=== PATIENT | male | born 1970 | race Hispanic/Latino ===

== ENCOUNTER 2019-08-09 07:44 | Emergency (ER) | payer OTHER ==
[2019-08-09 08:25] LABS: Basophils # (Auto) 0.1 K/mm3 (0.0-0.1); Basophils % (Auto) 0.5 % (0.0-1.8); Eosinophils % (Auto) 0.2 % (0.0-4.3); Hematocrit 45.6 % (35.5-45.6); Hemoglobin 16.2 gm/dl (11.8-15.2); Lymphocytes # (Auto) 1.7 K/mm3 (1.2-5.4); Lymphocytes % (Auto) 15.4 % (13.4-35.0); Mean Corpuscular HGB Conc 35 % (32-34); Mean Corpuscular Volume 94 fl (84-94); Monocytes # (Auto) 0.9 K/mm3 (0.0-0.8); Monocytes % (Auto) 7.9 % (0.0-7.3); Platelet Count 209 K/mm3 (140-440); Red Blood Count 4.83 M/mm3 (3.65-5.03); Red Cell Distribution Width 12.2 % (13.2-15.2)
[2019-08-09 08:35] LABS: BUN/Creatinine Ratio 27; Blood Urea Nitrogen 19 mg/dL (9-20); Hemolysis Index 10
[2019-08-09] MEDS ORDERED: LORazepam 1 MG TAB PO ONE (08:43)
--- NOTE | 2019-08-09 08:49 | Emergency Department Report ---
HPI - General Chief Complaint: Extremity Problem,Nontraumatic Time Seen by Provider: 08/09/19 08:17 - HPI HPI: [facility] The patient is a 48-year-old male presenting with a chief complaint of panic and paranoia. The patient is a poor historian but states that he was a limited detox center approximate 4 days ago. Patient states he left because he began to panic and felt paranoid as though the treatment team was trying to set him up "again." The patient is a poor historian and pauses approximately 15 seconds in between words whenever he is asked a question. Patient denies suicidal or homicidal ideation. Patient denies visual or auditory hallucinations Location: [See above] Duration: [See above] Quality: [See above] Severity: [See above] Timing: [See above] Context: [See above] Modifying factors: [See above] Associated signs and symptoms: [see above] ED Past Medical Hx - Past Medical History Previous Medical History?: Yes Hx of Cancer: Yes (Brain) Hx Psychiatric Treatment: Yes (alcoholism) Additional medical history: Hip pain, Bodyaches, Brain Cancer - Surgical History Past Surgical History?: Yes Additional Surgical History: Brain, Left arm - Family History Family history: no significant - Social History Smoking Status: Never Smoker Substance Use Type: None (denies illicit drug use), Alcohol (5-15 beers/vodka daily. None 5 days) ED Review of Systems ROS: Stated complaint: HIP PAIN Other details as noted in HPI Constitutional: no symptoms reported Respiratory: no symptoms reported Endocrine: no symptoms reported Gastrointestinal: denies: abdominal pain Physical Exam - Physical Exam Vital Signs: Vital Signs 08/09/19 07:51 Temperature 98.1 F Pulse Rate 104 H Respiratory 18 Rate Blood Pressure 126/94 O2 Sat by Pulse 97 Oximetry Physical Exam: GENERAL: The patient is well-developed well-nourished male sitting in chair not appear to be in acute distress. [] HEENT: Normocephalic. Atraumatic. Extraocular motions are intact. Patient has moist mucous membranes. NECK: Supple. Trachea midline CHEST/LUNGS: Clear to auscultation. There is no respiratory distress noted. HEART/CARDIOVASCULAR: Regular. There is tachycardia. There is no gallop rub or murmur. ABDOMEN: Abdomen is soft, nontender. Patient has normal bowel sounds. There is no abdominal distention. SKIN: There is no rash. There is no edema. There is no diaphoresis. NEURO: The patient is awake, alert, and oriented to self and year. Patient is aware that he is in a hospital but was unable to name it. The patient is cooperative. The patient has no focal neurologic deficits. The patient has normal speech and gait. MUSCULOSKELETAL: There is no evidence of acute injury. ED Course Vital Signs 08/09/19 07:51 Temperature 98.1 F Pulse Rate 104 H Respiratory 18 Rate Blood Pressure 126/94 O2 Sat by Pulse 97 Oximetry ED Medical Decision Making - Lab Data Result diagrams: 08/09/19 08:05 08/09/19 08:05 Laboratory Tests 08/09/19 08/09/19 08/09/19 08:05 08:05 08:05 WBC RBC Hgb Hct MCV MCH MCHC RDW Plt Count Lymph % (Auto) [place] % (Auto) Eos % (Auto) Baso % (Auto) Lymph # [place] # Eos # Baso # Seg Neutrophils % Seg Neutrophils # Sodium 139 Potassium 4.3 Chloride 96.4 L Carbon Dioxide 27 Anion Gap 20 BUN 19 Creatinine 0.7 L Estimated GFR > 60 BUN/Creatinine Ratio 27 Glucose 127 H Calcium 10.0 Urine Color Urine Turbidity Urine pH Ur Specific [place] Urine Protein Urine Glucose (UA) Urine Ketones Urine Blood Urine Nitrite Urine Bilirubin Urine Urobilinogen Ur Leukocyte Esterase Urine WBC (Auto) Urine RBC (Auto) U Epithel Cells (Auto) Urine Mucus Urine Opiates Screen Urine Methadone Screen Acetaminophen < 5.0 L Ur Barbiturates Screen Ur Phencyclidine Scrn Ur Amphetamines Screen U Benzodiazepines Scrn Urine Cocaine Screen U Marijuana (THC) Screen Drugs of Abuse Note Plasma/Serum Alcohol < 0.01 08/09/19 08/09/19 08/09/19 08:05 08:46 08:46 WBC 11.2 H RBC 4.83 Hgb 16.2 H Hct 45.6 MCV 94 MCH 34 H MCHC 35 H RDW 12.2 L Plt Count 209 Lymph % (Auto) 15.4 [place] % (Auto) 7.9 H Eos % (Auto) 0.2 Baso % (Auto) 0.5 Lymph # 1.7 [place] # 0.9 H Eos # 0.0 Baso # 0.1 Seg Neutrophils % 76.0 H Seg Neutrophils # 8.6 H Sodium Potassium Chloride Carbon Dioxide Anion Gap BUN Creatinine Estimated GFR BUN/Creatinine Ratio Glucose Calcium Urine Color Yellow Urine Turbidity Clear Urine pH 5.0 Ur Specific [place] 1.025 Urine Protein <15 mg/dl Urine Glucose (UA) Neg Urine Ketones Tr Urine Blood Sm Urine Nitrite Neg Urine Bilirubin Neg Urine Urobilinogen 4.0 Ur Leukocyte Esterase Neg Urine WBC (Auto) 1.0 Urine RBC (Auto) 2.0 U Epithel Cells (Auto) < 1.0 Urine Mucus 1+ Urine Opiates Screen Presumptive negative Urine Methadone Screen Presumptive negative Acetaminophen Ur Barbiturates Screen Presumptive negative Ur Phencyclidine Scrn Presumptive negative Ur Amphetamines Screen Presumptive negative U Benzodiazepines Scrn Presumptive negative Urine Cocaine Screen Presumptive negative U Marijuana (THC) Screen Presumptive negative Drugs of Abuse Note Disclamer Plasma/Serum Alcohol - Radiology Data Radiology results: report reviewed (CT head), image reviewed (CT head) [facility] [address] [place] [address] Cat Scan Report Signed Patient: FLORA LOERA MR#: [id number] : 1970 Acct:[id number] Age/Sex: 48 / M ADM Date: 08/09/19 Loc: ED Attending Dr: Ordering Physician: SVETLANA JAIN MD Date of Service: 08/09/19 Procedure(s): CT head/brain wo con Accession Number(s): [id number] cc: SVETLANA JAIN MD CT head/brain wo con INDICATION / CLINICAL INFORMATION: 48 years Male; paranoia. history of brain CA. TECHNIQUE: Routine CT head without contrast. All CT scans at this location are performed using CT dose reduction for ALARA by means of automated exposure control. COMPARISON: None. FINDINGS: BRAIN / INTRACRANIAL CONTENTS: The patient is status post right occipital craniotomy with encephalomalacia involving underlying right occipital lobe. There is associated ex vacuo dilatation the posterior right lateral ventricle. There is no CT ends of acute intracranial hemorrhage or significant mass effect at. The ventricular system is otherwise appropriate in size and configuration. ORBITS: No significant abnormality of visualized orbits. SINUSES / MASTOIDS: There is a smaller retention cysts within the visualized left maxillary sinus. CRANIOCERVICAL JUNCTION: No significant abnormality. ADDITIONAL FINDINGS: None. IMPRESSION: 1. There are postsurgical changes involving the right occipital lobe as detailed above. Otherwise, CT of the head appears unremarkable without evidence of acute intracranial hemorrhage. Signer Name: Flora Doe MD Signed: 08/09/2019 11:29 AM Workstation Name: [id number] Transcribed By: MR Dictated By: Flora Doe MD Electronically Authenticated By: Flora Doe MD Signed Date/Time: 08/09/19 112 DD/ 23 TD/TT: - Differential Diagnosis alcohol withdrawal, altered mental status Critical care attestation.: If time is entered above; I have spent that time in minutes in the direct care of this critically ill patient, excluding procedure time. ED Disposition Clinical Impression: Paranoia, Alcohol abuse Disposition: [id number]/TX-[id number] H[facility]P/PSY UNIT Is pt being admited?: No Does the pt Need Aspirin: No Condition: Stable Referrals: PRIMARY CAREMD [Primary Care Provider] - 3-5 Days Time of Disposition: 14:00 (awaiting acceptance)
[2019-08-09 08:54] LABS: Bilirubin,Urine NEG (Negative); Blood,Urine SM (Negative); Color,Urine Yellow (Yellow); Mucus,Urine 1+ /HPF; Protein,Urine <15 mg/dL mg/dL (Negative)
[2019-08-09 09:35] LABS: Amphetamine Screen,Urine PRESUMPTIVE NEGATIVE; Benzodiazepines Screen,Urine PRESUMPTIVE NEGATIVE; Cannabinoid Screen,Urine PRESUMPTIVE NEGATIVE; Cocaine Screen,Urine PRESUMPTIVE NEGATIVE; Methadone Screen,Urine PRESUMPTIVE NEGATIVE; Opiate Screen,Urine PRESUMPTIVE NEGATIVE
--- NOTE | 2019-08-09 11:33 | Cat Scan Report ---
CT head/brain wo con INDICATION / CLINICAL INFORMATION: 48 years Male; paranoia. history of brain CA. TECHNIQUE: Routine CT head without contrast. All CT scans at this location are performed using CT dos e reduction for ALARA by means of automated exposure control. COMPARISON: None. FINDINGS: BRAIN / INTRACRANIAL CONTENTS: The patient is status post right occipital craniotomy with encephaloma lacia involving underlying right occipital lobe. There is associated ex vacuo dilatation the posterio r right lateral ventricle. There is no CT ends of acute intracranial hemorrhage or significant mass e ffect at. The ventricular system is otherwise appropriate in size and configuration. ORBITS: No significant abnormality of visualized orbits. SINUSES / MASTOIDS: There is a smaller retention cysts within the visualized left maxillary sinus. CRANIOCERVICAL JUNCTION: No significant abnormality. ADDITIONAL FINDINGS: None. IMPRESSION: 1. There are postsurgical changes involving the right occipital lobe as detailed above. Otherwise, CT of the head appears unremarkable without evidence of acute intracranial hemorrhage. Signer Name: Feliciano Doe MD Signed: 08/09/2019 11:29 AM Workstation Name: [id number]
[2019-08-09 15:07] VITALS: BP 143/105
== END 2019-08-09 18:02 ==
LOC: EEVIPCON 07:44 → ED 07:44
DX: F22 Delusional disorders (principal); F10.129 Alcohol abuse with intoxication, unspecified; Z85.841 Personal history of malignant neoplasm of brain; Z79.899 Other long term (current) drug therapy
CPT/HCPCS: 36415; 70450; 80048; 80307; 80320; 81001; 85025; G0480